=== PATIENT | male | born 2000 | race Caucasian/White ===

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

== ENCOUNTER 2018-03-13 06:37 | Emergency (ER) | payer OTHER | END 2018-03-13 07:46 | disposition left against medical advice (07) | LOC: M ED 06:37 | DX: Z04.1 Encounter for examination and observation following transport accident (principal); Z53.21 Procedure and treatment not carried out due to patient leaving prior to being seen by health care provider ==

== ENCOUNTER 2018-03-21 17:18 | Emergency (ER) | payer OTHER ==
[2018-03-21 17:33] LABS: HEMATOCRIT 51.8 % (42.0-52.0); HEMOGLOBIN 18.2 g/dl (13.5-17.5); MEAN CORPUSCULAR HEMOGLOBIN 31.8 pg (27.0-33.0); MEAN CORPUSCULAR HGB CONC 35.1 g/dl (32.0-36.5); MEAN CORPUSCULAR VOLUME 90.6 fl (80.0-96.0); PLATELET COUNT, AUTOMATED 230 10^3/uL (150-450); RED BLOOD COUNT 5.72 10^6/uL (4.30-6.10); WHITE BLOOD COUNT 11.9 10^3/uL (4.0-10.0)
[2018-03-21] MEDS: NS 1,000 ML IV (17:52)
[2018-03-21 18:07] LABS: ACETAMINOPHEN LEVEL < 2.0 UG/ML (10.0-30.0); ALBUMIN 4.1 GM/DL (3.2-5.2); ALKALINE PHOSPHATASE 138 U/L (45-117); ALT/SGPT 128 U/L (12-78); ANION GAP 10 MEQ/L (8-16); AST/SGOT 128 U/L (7-37); BILIRUBIN,DIRECT 0.1 MG/DL (0.0-0.2); BILIRUBIN,TOTAL 0.3 MG/DL (0.2-1.0); BLOOD UREA NITROGEN 5 MG/DL (7-18); CALCIUM LEVEL 8.6 MG/DL (8.5-10.1); CARBON DIOXIDE LEVEL 26 MEQ/L (21-32); CHLORIDE LEVEL 106 MEQ/L (98-107); CREATININE FOR GFR 0.89 MG/DL (0.70-1.30); ETHYL ALCOHOL (ETHANOL) 0.395 % (0.000-0.010); GLUCOSE, FASTING 93 MG/DL (70-100); POTASSIUM SERUM 4.4 MEQ/L (3.5-5.1); SALICYLATE LEVEL 2.4 MG/DL (5.0-30.0); SODIUM LEVEL 142 MEQ/L (136-145); TOTAL PROTEIN 8.2 GM/DL (6.4-8.2)
[2018-03-21 18:17] LABS: AMPHETAMINES LEVEL URINE NEGATIVE (NEGATIVE); BARBITURATES URINE NEGATIVE (NEGATIVE); BENZODIAZEPINES URINE NEGATIVE (NEGATIVE); CANNABINOIDS URINE NEGATIVE (NEGATIVE); COCAINE METABOLITE URINE NEGATIVE (NEGATIVE); METHADONE URINE NEGATIVE (NEGATIVE); OPIATES URINE NEGATIVE (NEGATIVE); PHENCYCLIDINE URINE NEGATIVE (NEGATIVE)
== END 2018-03-21 18:48 | disposition home or self-care (01) ==
LOC: M ED 17:18
DX: F10.120 Alcohol abuse with intoxication, uncomplicated (principal); F41.9 Anxiety disorder, unspecified; Z87.09 Personal history of other diseases of the respiratory system; F17.200 Nicotine dependence, unspecified, uncomplicated; Z79.899 Other long term (current) drug therapy
CPT/HCPCS: 71045

== ENCOUNTER 2018-04-13 01:26 | Inpatient (IN) | payer OTHER ==
[2018-04-13] MEDS ORDERED: PROPOFOL 1,000 MG/100 ML VIAL As Ordered (01:35)
[2018-04-13] MEDS: ETOMIDATE INJ 20MG/10ML VIAL IV (01:45)
[2018-04-13] MEDS: SUCCINYLCHOLINE INJ 200 MG/10 ML VIAL (J0330) IV (01:45)
[2018-04-13] MEDS ORDERED: ISOVUE-370 76% 100ML VIAL (Q9967) As Ordered (01:48)
[2018-04-13] MEDS: PROPOFOL 1,000 MG in APPROPRIATE DILUENT 1 EA IV ×7 (01:55→17:01)
[2018-04-13 01:58] LABS: HEMATOCRIT 46.7 % (42.0-52.0); HEMOGLOBIN 16.7 g/dl (13.5-17.5); MEAN CORPUSCULAR HEMOGLOBIN 31.6 pg (27.0-33.0); MEAN CORPUSCULAR HGB CONC 35.8 g/dl (32.0-36.5); MEAN CORPUSCULAR VOLUME 88.4 fl (80.0-96.0); PLATELET COUNT, AUTOMATED 216 10^3/uL (150-450); RED BLOOD COUNT 5.28 10^6/uL (4.30-6.10); RED CELL DISTRIBUTION WIDTH 12.1 % (11.5-14.5); WHITE BLOOD COUNT 11.3 10^3/uL (4.0-10.0)
[2018-04-13 02:01] LABS: ADD MANUAL DIFFER YES; DIFF SLIDE NUMBER 91; POSITIVE DIFF POS FLAG
[2018-04-13 02:12] LABS: BASOPHILS 1 % (0-4); EOSINOPHILS 2 % (0-5); LYMPHOCYTES 47 % (16-52); MONOCYTES 1 % (0-8); NEUTROPHILS 49 % (35-75); PLATELET ESTIMATE NORMAL (NORMAL)
[2018-04-13 02:37] LABS: ALBUMIN/GLOBULIN RATIO 1.03 (1.00-1.93); ALKALINE PHOSPHATASE 128 U/L (45-117); ALT/SGPT 162 U/L (12-78); ANION GAP 13 MEQ/L (8-16); AST/SGOT 174 U/L (7-37); BILIRUBIN,DIRECT 0.1 MG/DL (0.0-0.2); BILIRUBIN,TOTAL 0.2 MG/DL (0.2-1.0); BLOOD UREA NITROGEN 6 MG/DL (7-18); CALCIUM LEVEL 8.7 MG/DL (8.5-10.1); CARBON DIOXIDE LEVEL 24 MEQ/L (21-32); CHLORIDE LEVEL 104 MEQ/L (98-107); CREATININE FOR GFR 0.81 MG/DL (0.70-1.30); GLUCOSE, FASTING 111 MG/DL (70-100); LIPASE 110 U/L (73-393); POTASSIUM SERUM 3.5 MEQ/L (3.5-5.1); SODIUM LEVEL 141 MEQ/L (136-145); TOTAL PROTEIN 7.9 GM/DL (6.4-8.2)
[2018-04-13 02:53] LABS: APPEARANCE, URINE CLEAR (CLEAR); BACTERIA, URINE AUTO NEGATIVE (NEGATIVE); BILIRUBIN, URINE AUTO NEGATIVE (NEGATIVE); BLOOD, URINE BLOOD NEGATIVE (NEGATIVE); COLOR, URINE STRAW (YELLOW); GLUCOSE, URINE (UA) AUTO NEGATIVE (NEGATIVE); KETONE, URINE AUTO NEGATIVE (NEGATIVE); LEUKOCYTE ESTERASE, URINE AUTO NEGATIVE (NEGATIVE); NITRITE, URINE AUTO NEGATIVE (NEGATIVE); PROTEIN, URINE AUTO NEGATIVE (NEGATIVE); RBC, URINE AUTO 0 /HPF (0-3); SPECIFIC GRAVITY URINE AUTO 1.008 (1.002-1.035); SQUAMOUS EPITHELIAL CELL UR AU 0 /HPF (0-6); UROBILINOGEN, URINE AUTO 0.2 mg/dL (0.0-2.0); WBC, URINE AUTO 1 /HPF (0-3)
[2018-04-13 02:57] LABS: ETHYL ALCOHOL (ETHANOL) 0.431 % (0.000-0.010)
[2018-04-13 03:21] LABS: AMPHETAMINES LEVEL URINE NEGATIVE (NEGATIVE); BARBITURATES URINE NEGATIVE (NEGATIVE); BENZODIAZEPINES URINE NEGATIVE (NEGATIVE); CANNABINOIDS URINE NEGATIVE (NEGATIVE); COCAINE METABOLITE URINE NEGATIVE (NEGATIVE); METHADONE URINE NEGATIVE (NEGATIVE); OPIATES URINE NEGATIVE (NEGATIVE); PHENCYCLIDINE URINE NEGATIVE (NEGATIVE)
[2018-04-13 03:35] LABS: ABG BASE EXCESS -2.9 (-2.0-2.0); ABG HCO3 19.5 MEQ/L (22.0-26.0); ABG O2 SATURATION 99.2 % (95.0-99.0); ABG PARTIAL PRESSURE CO2 28.8 mmHg (35.0-45.0); ABG PARTIAL PRESSURE O2 203.1 mmHg (75.0-100.0); ABG STANDARD HCO3 22.1 MEQ/L (22.0-26.0); ABG TOTAL CO2 20.4 MEQ/L (22.0-29.0); ABG pH (ARTERIAL) 7.449 UNITS (7.350-7.450)
[2018-04-13] MEDS: PROPOFOL 200 MG/20 ML VIAL IV (03:55)
[2018-04-13] MEDS: IPRATROPIUM 0.5MG/ALBUTEROL 2.5MG INH SOL UD 3ML (DUONEB)(J7620) NEB ×4 (07:14→20:00)
[2018-04-13] MEDS ORDERED: MIDAZOLAM INJ 2 MG/2 ML VIAL (J2250) As Ordered ×3 (07:38)
[2018-04-13] MEDS: MIDAZOLAM INJ 2 MG/2 ML VIAL (J2250) IV ×6 (07:48→16:15)
[2018-04-13] MEDS: ENOXAPARIN 40 MG/0.4 ML SYRINGE (J1650) SC (08:29)
[2018-04-13] MEDS: PANTOPRAZOLE 40MG INJ (PROTONIX) (C9113) IV (08:29)
[2018-04-13] MEDS: MULTIVITAMIN -ADULT INJECTION 10 ML, THIAMINE INJection 100 MG, FOLIC ACID 1 MG in NS 1... IV (10:41)
[2018-04-13] MEDS ORDERED: SUCCINYLCHOLINE 100 MG/5 ML SYRINGE (J0330) (11:26)
[2018-04-13] MEDS: NS 1,000 ML IV (11:40)
[2018-04-13] MEDS: CHLORHEXIDINE ORAL RINSE 0.12%/15ML 120ML BOTTLE MT (12:07)
[2018-04-13] MEDS: MORPHINE 4 MG/ML 1ML VIAL/SYRINGE (J2270) IV (16:16)
== END 2018-04-13 20:02 | disposition left against medical advice (07) | DRG 133 ==
LOC: M ED 01:26 → M ED INP 05:11 → M ICU 06:33
PROC: 0BH17EZ Insertion of Endotracheal Airway into Trachea, Via Natural or Artificial Opening (ICD-10-PCS; principal; 2018-04-13)
PROC: 5A1935Z Respiratory Ventilation, Less than 24 Consecutive Hours (ICD-10-PCS; 2018-04-13)
DX: J96.90 Respiratory failure, unspecified, unspecified whether with hypoxia or hypercapnia (principal); F41.9 Anxiety disorder, unspecified; F10.129 Alcohol abuse with intoxication, unspecified

== ENCOUNTER → 2018-06-01 | Outpatient (CLI) | payer MEDICAID | LOC: M OUTALCOH 07:37 | DX: Z13.89 Encounter for screening for other disorder (principal); F10.20 Alcohol dependence, uncomplicated ==

== ENCOUNTER 2018-06-11 15:25 | Outpatient (RCR) | payer MEDICAID | END 2018-06-30 | LOC: M OUTALCOH 06-15 09:00 | DX: F10.20 Alcohol dependence, uncomplicated (principal); F17.200 Nicotine dependence, unspecified, uncomplicated ==

== ENCOUNTER → 2018-07-01 | Outpatient (CLI) | payer MEDICAID ==
[2018-07-01 19:43] LABS: BASO % 0.4 % (0.0-1.0); EOS # 0.2 10^3/uL (0.0-0.50); EOS % 1.7 % (0.0-3.0); HEMATOCRIT 50.2 % (42.0-52.0); IMMATURE GRANULOCYTE % 0.4 % (0-3.0); LYMPH # 2.5 10^3/uL (1.5-6.5); LYMPH % 23.7 % (24.0-44.0); MEAN CORPUSCULAR HEMOGLOBIN 31.8 pg (27.0-33.0); MEAN CORPUSCULAR HGB CONC 33.9 g/dl (32.0-36.5); MONO # 0.9 10^3/uL (0.0-0.8); MONO % 8.7 % (0.0-5.0); NEUTROPHILS # 6.7 10^3/uL (1.8-7.7); NEUTROPHILS % 65.1 % (36.0-66.0); PLATELET COUNT, AUTOMATED 205 10^3/uL (150-450); RED BLOOD COUNT 5.34 10^6/uL (4.30-6.10); WHITE BLOOD COUNT 10.4 10^3/uL (4.0-10.0)
[2018-07-01 19:56] LABS: ALBUMIN 4.1 GM/DL (3.2-5.2); ALBUMIN/GLOBULIN RATIO 1.14 (1.00-1.93); ALKALINE PHOSPHATASE 102 U/L (45-117); ALT/SGPT 43 U/L (12-78); ANION GAP 5 MEQ/L (8-16); AST/SGOT 37 U/L (7-37); BILIRUBIN,TOTAL 0.5 MG/DL (0.2-1.0); BLOOD UREA NITROGEN 3 MG/DL (7-18); CALCIUM LEVEL 9.4 MG/DL (8.5-10.1); CARBON DIOXIDE LEVEL 31 MEQ/L (21-32); CHLORIDE LEVEL 103 MEQ/L (98-107); CREATININE FOR GFR 0.92 MG/DL (0.70-1.30); GLUCOSE, FASTING 63 MG/DL (70-100); POTASSIUM SERUM 4.3 MEQ/L (3.5-5.1); SODIUM LEVEL 139 MEQ/L (136-145); TOTAL PROTEIN 7.7 GM/DL (6.4-8.2)
== END ==
LOC: M WUC 14:27
DX: F10.220 Alcohol dependence with intoxication, uncomplicated (principal); D52.1 Drug-induced folate deficiency anemia
CPT/HCPCS: 80053

== ENCOUNTER 2018-07-05 15:34 | Outpatient (RCR) | payer MEDICAID | END 2018-07-30 | LOC: M OUTALCOH 15:34 | DX: F10.20 Alcohol dependence, uncomplicated (principal); F17.200 Nicotine dependence, unspecified, uncomplicated ==

== ENCOUNTER 2018-07-10 14:38 | Emergency (ER) | payer OTHER, MEDICAID | END 2018-07-10 14:58 | disposition left against medical advice (07) | LOC: M ED 14:38 | DX: Z53.29 Procedure and treatment not carried out because of patient's decision for other reasons (principal) ==

== ENCOUNTER 2018-08-27 14:00 | Outpatient (RCR) | payer MEDICAID ==
[~2018-08-27 14:00] MED LIST: AMOX875T; DIAZ10TA2; IBUPOTC PO; LORA-243; LORA10TA3 PO; PRED20TA; SERT-138; SERT-138 PO; SERT25TA88
== END 2018-08-30 ==
LOC: M OUTALCOH 14:00
PROVIDERS: ATTEND Psychiatry & Neurology Psychiatry
DX: F10.20 Alcohol dependence, uncomplicated (principal); F17.200 Nicotine dependence, unspecified, uncomplicated

== ENCOUNTER 2018-09-29 15:00 | Outpatient (RCR) | payer MEDICAID | END 2018-09-30 | LOC: M OUTALCOH 15:00 | PROVIDERS: ATTEND Psychiatry & Neurology Psychiatry | DX: F10.20 Alcohol dependence, uncomplicated (principal); F17.200 Nicotine dependence, unspecified, uncomplicated ==

== ENCOUNTER 2018-10-22 14:00 | Outpatient (RCR) | payer MEDICAID | END 2018-10-28 | LOC: M OUTALCOH 14:00 | PROVIDERS: ATTEND Psychiatry & Neurology Psychiatry | DX: F10.20 Alcohol dependence, uncomplicated (principal); F17.200 Nicotine dependence, unspecified, uncomplicated ==

== ENCOUNTER 2018-11-26 14:00 | Outpatient (RCR) | payer MEDICAID ==
[2018-11-30] MEDS ORDERED: HYDR-3363 PO (08:25)
== END 2018-11-28 ==
LOC: M OUTALCOH 14:00
PROVIDERS: ATTEND Psychiatry & Neurology Psychiatry
DX: F10.20 Alcohol dependence, uncomplicated (principal); F17.200 Nicotine dependence, unspecified, uncomplicated

== ENCOUNTER 2018-12-07 08:48 | Day surgery (SDC) | payer OTHER ==
[~2018-12-07] VITALS: Ht 182.9 cm; Wt 83.5 kg
[~2018-12-07 08:48] MED LIST changes: +HYDR-3363 PO; +LR 1,000 ML IV ONE
[2018-12-07] MEDS ORDERED: PROPOFOL 200 MG/20 ML VIAL As Ordered ONE (09:16)
[2018-12-07] MEDS ORDERED: MIDAZOLAM INJ 2 MG/2 ML VIAL (J2250) As Ordered ONE (09:16)
[2018-12-07] MEDS ORDERED: LIDOCAINE 2% INJ 100 MG/5 ML SDV (FOR ANES.) As Ordered ONE (09:16)
[2018-12-07] MEDS ORDERED: fentaNYL 250 MCG/5 ML INJECTION (J3010) As Ordered ONE (09:16)
[2018-12-07] MEDS ORDERED: dexameTHASONE 4 MG/ML 1ML VIAL (J1100) As Ordered ONE (09:16)
[2018-12-07] MEDS ORDERED: ONDANSETRON 4MG/2ML VIAL (J2405) As Ordered ONE (09:16)
[2018-12-07] MEDS ORDERED: BACITRACIN OINT 30GM As Ordered ONE (10:02)
[2018-12-07] MEDS ORDERED: LIDOCAINE W/EPINEPHRINE 1% 20ML VIAL As Ordered ONE (10:03)
[2018-12-07 11:00] VITALS: BP 158/81
--- NOTE | 2018-12-21 14:05 | RO ---
DATE OF PROCEDURE: 12/07/2018 PREOPERATIVE DIAGNOSIS: Sebaceous cyst of the right face. POSTOPERATIVE DIAGNOSIS: Sebaceous cyst of the right face. PROCEDURE: Excision of sebaceous cyst of the right face. SURGEON: Dr. Calvin Rogers APPLICATION SUPPORT CONSULTANT: ANESTHESIA: INDICATIONS: This is a 18-year-old with a history of a soft tissue swelling of the right face just anterior to the zygomatic arch just beneath it. DESCRIPTION OF PROCEDURE: Satisfactory position was created and the patient chose not to have any type of intravenous sedation. The skin was prepped and draped in the usual sterile fashion. 0.5% lidocaine with 1:100,000 epinephrine was used to inject a region around the cyst. An elliptical incision was made on top of the cyst to include a small palatal of skin. Superficially the cyst capsule was identified and using a combination of blunt and sharp dissection the cyst was carefully dissected from the underlying soft tissue, being careful not to go beneath the fascia overlying the facial muscles on that side. The incision was made in a vertical curvilinear position so that it would be incorporated to laugh lines. Once the cyst was removed intact, the skin edges were almost coapted without any sutures. A #5-0 plain suture was placed interrupted fashion to approximate the edges and Steri-Strips were applied. He tolerated this procedure well, was sent to recovery in satisfactory condition. He will be followed up in 1 week.
== END 2018-12-07 11:20 | disposition home or self-care (01) ==
LOC: M SDC 08:48
PROVIDERS: ATTEND Specialist
DX: L72.0 Epidermal cyst (principal); F41.9 Anxiety disorder, unspecified; Z72.0 Tobacco use

== ENCOUNTER → 2018-12-24 | Outpatient (CLI) | payer OTHER ==
[~2018-12-24] MED LIST changes: -LR 1,000 ML IV ONE
== END ==
LOC: M LAB 17:14
PROVIDERS: ATTEND Psychiatry & Neurology Psychiatry
DX: F10.20 Alcohol dependence, uncomplicated (principal)

== ENCOUNTER 2018-12-27 14:00 | Outpatient (RCR) | payer MEDICAID | END 2018-12-28 | LOC: M OUTALCOH 14:00 | PROVIDERS: ATTEND Psychiatry & Neurology Psychiatry | DX: F10.20 Alcohol dependence, uncomplicated (principal); F17.200 Nicotine dependence, unspecified, uncomplicated ==

== ENCOUNTER 2019-01-21 15:59 | Outpatient (RCR) | payer MEDICAID | END 2019-01-28 | LOC: M OUTALCOH 15:59 | PROVIDERS: ATTEND Psychiatry & Neurology Psychiatry | DX: F10.20 Alcohol dependence, uncomplicated (principal); F17.200 Nicotine dependence, unspecified, uncomplicated ==

== ENCOUNTER 2019-02-23 16:00 | Outpatient (RCR) | payer MEDICAID | END 2019-02-27 | LOC: M OUTALCOH 16:00 | PROVIDERS: ATTEND Psychiatry & Neurology Psychiatry | DX: F10.20 Alcohol dependence, uncomplicated (principal); F17.200 Nicotine dependence, unspecified, uncomplicated ==

== ENCOUNTER 2019-03-28 16:00 | Outpatient (RCR) | payer MEDICAID | END 2019-03-30 | LOC: M OUTALCOH 16:00 | PROVIDERS: ATTEND Psychiatry & Neurology Psychiatry | DX: F10.20 Alcohol dependence, uncomplicated (principal); F17.200 Nicotine dependence, unspecified, uncomplicated ==

== ENCOUNTER 2019-04-29 15:57 | Outpatient (RCR) | payer MEDICAID | END 2019-04-30 | LOC: M OUTALCOH 15:57 | PROVIDERS: ATTEND Psychiatry & Neurology Psychiatry | DX: F10.20 Alcohol dependence, uncomplicated (principal); F17.200 Nicotine dependence, unspecified, uncomplicated ==

== ENCOUNTER → 2019-05-30 | Outpatient (RCR) | payer MEDICAID | LOC: M OUTALCOH 05-09 10:27 | PROVIDERS: ATTEND Psychiatry & Neurology Psychiatry | DX: F10.20 Alcohol dependence, uncomplicated (principal); F17.200 Nicotine dependence, unspecified, uncomplicated ==

== ENCOUNTER 2019-06-29 08:00 | Outpatient (RCR) | payer MEDICAID ==
[~2019-06-29 08:00] MED LIST changes: +SERT25TA21; -SERT25TA88
== END 2019-06-30 ==
LOC: M OUTALCOH 08:00
PROVIDERS: ATTEND Psychiatry & Neurology Psychiatry
DX: F10.20 Alcohol dependence, uncomplicated (principal); F17.200 Nicotine dependence, unspecified, uncomplicated

== ENCOUNTER 2019-07-11 09:02 | Outpatient (RCR) | payer MEDICAID | END 2019-07-30 | LOC: M OUTALCOH 09:02 | PROVIDERS: ATTEND Psychiatry & Neurology Psychiatry | DX: F10.20 Alcohol dependence, uncomplicated (principal); F17.200 Nicotine dependence, unspecified, uncomplicated ==

== ENCOUNTER 2019-08-15 08:01 | Outpatient (RCR) | payer MEDICAID | END 2019-08-30 | LOC: M OUTALCOH 08:01 | PROVIDERS: ATTEND Psychiatry & Neurology Psychiatry | DX: F10.20 Alcohol dependence, uncomplicated (principal); F17.200 Nicotine dependence, unspecified, uncomplicated ==

== ENCOUNTER → 2019-08-22 | Outpatient (CLI) | payer OTHER | LOC: M LAB 14:10 | PROVIDERS: ATTEND Psychiatry & Neurology Psychiatry | DX: F12.10 Cannabis abuse, uncomplicated (principal) ==

== ENCOUNTER 2019-09-19 10:07 | Outpatient (RCR) | payer MEDICAID | END 2019-09-30 | LOC: M OUTALCOH 10:07 | PROVIDERS: ATTEND Psychiatry & Neurology Psychiatry | DX: F10.20 Alcohol dependence, uncomplicated (principal); F17.200 Nicotine dependence, unspecified, uncomplicated ==

== ENCOUNTER 2019-10-24 15:49 | Outpatient (RCR) | payer OTHER | END 2019-10-29 | LOC: M OUTALCOH 15:49 | PROVIDERS: ATTEND Psychiatry & Neurology Addiction Medicine | DX: F10.20 Alcohol dependence, uncomplicated (principal); F17.200 Nicotine dependence, unspecified, uncomplicated ==

== ENCOUNTER 2019-11-28 08:08 | Outpatient (RCR) | payer MEDICAID | END 2019-11-29 | LOC: M OUTALCOH 08:08 | PROVIDERS: ATTEND Psychiatry & Neurology Addiction Medicine | DX: F10.20 Alcohol dependence, uncomplicated (principal); F17.200 Nicotine dependence, unspecified, uncomplicated ==

== ENCOUNTER → 2019-12-21 | Outpatient (REF) | payer MEDICAID ==
[2019-12-21 21:13] LABS: CHLAMYDIA DNA AMPLIFICATION NEGATIVE (NEGATIVE); GC DNA AMPLIFICATION NEGATIVE (NEGATIVE)
== END ==
LOC: M LAB REF 19:31
PROVIDERS: ATTEND Physician Assistant
DX: Z11.3 Encounter for screening for infections with a predominantly sexual mode of transmission (principal)

== ENCOUNTER 2020-01-02 09:10 | Outpatient (RCR) | payer MEDICAID | END 2020-01-29 | LOC: M OUTALCOH 09:10 | PROVIDERS: ATTEND Psychiatry & Neurology Addiction Medicine | DX: F10.20 Alcohol dependence, uncomplicated (principal); F17.200 Nicotine dependence, unspecified, uncomplicated ==

== ENCOUNTER → 2020-01-11 | Outpatient (CLI) | payer MEDICAID | LOC: M PLALAB 15:55 | PROVIDERS: ATTEND Psychiatry & Neurology Addiction Medicine | DX: F10.20 Alcohol dependence, uncomplicated (principal) ==

== ENCOUNTER → 2020-02-02 | Outpatient (CLI) | payer MEDICAID | LOC: M PLALAB 15:10 | PROVIDERS: ATTEND Psychiatry & Neurology Addiction Medicine | DX: F10.920 Alcohol use, unspecified with intoxication, uncomplicated (principal) ==

== ENCOUNTER 2020-02-07 08:00 | Outpatient (RCR) | payer MEDICAID | END 2020-02-28 | LOC: M OUTALCOH 08:00 | PROVIDERS: ATTEND Psychiatry & Neurology Addiction Medicine | DX: F10.20 Alcohol dependence, uncomplicated (principal); F17.200 Nicotine dependence, unspecified, uncomplicated ==

== ENCOUNTER 2020-03-12 08:38 | Outpatient (RCR) | payer MEDICAID | END 2020-03-30 | LOC: M OUTALCOH 08:38 | PROVIDERS: ATTEND Psychiatry & Neurology Addiction Medicine | DX: F10.20 Alcohol dependence, uncomplicated (principal); F17.200 Nicotine dependence, unspecified, uncomplicated ==

== ENCOUNTER → 2020-04-12 | Outpatient (CLI) | payer MEDICAID | LOC: M OUTALCOH 09:00 | PROVIDERS: ATTEND Psychiatry & Neurology Addiction Medicine | DX: Z03.89 Encounter for observation for other suspected diseases and conditions ruled out (principal) ==

== ENCOUNTER 2020-04-18 10:00 | Outpatient (RCR) | payer MEDICAID | END 2020-04-30 | LOC: M OUTALCOH 10:00 | PROVIDERS: ATTEND Psychiatry & Neurology Addiction Medicine | DX: F10.20 Alcohol dependence, uncomplicated (principal); F17.200 Nicotine dependence, unspecified, uncomplicated ==

== ENCOUNTER 2021-04-17 13:23 | Emergency (ER) | payer MEDICAID ==
[~2021-04-17] VITALS: Ht 182.9 cm; Wt 83.2 kg
[2021-04-17 13:23] VITALS: BP 144/89
[2021-04-17] MEDS ORDERED: PROP20TA72 (13:36)
[2021-04-17] MEDS ORDERED: DIAZ10TA2 (13:36)
[2021-04-17] MEDS ORDERED: BUSP10TA (13:36)
== END 2021-04-17 14:05 | disposition left against medical advice (07) ==
LOC: M ED 13:23
DX: Z53.21 Procedure and treatment not carried out due to patient leaving prior to being seen by health care provider (principal)

== ENCOUNTER 2021-08-03 08:21 | Emergency (ER) | payer MEDICAID ==
[~2021-08-03] VITALS: Ht 182.9 cm; Wt 71.9 kg
[~2021-08-03 08:21] MED LIST changes: +BUSP10TA PO; +PROP20TA72 PO
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
[2021-08-03] MEDS ORDERED: MIRTAZAPINE PO (08:39)
[2021-08-03] MEDS ORDERED: ZOLO100T PO (08:39)
[2021-08-03] MEDS ORDERED: ONDANSETRON 4 MG ORAL DISINTEGRATING TAB PO ONE (09:00)
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
[2021-08-03 09:40] LABS: HEMATOCRIT 49.3 % (42.0-52.0); HEMOGLOBIN 17.4 g/dl (13.5-17.5); MEAN CORPUSCULAR HGB CONC 35.3 g/dl (32.0-36.5); PLATELET COUNT, AUTOMATED 283 10^3/uL (150-450)
[2021-08-03] MEDS ORDERED: PROMETHAZINE INJ 25 MG/ML VIAL (J2550) IM ONE (10:15)
[2021-08-03 10:18] LABS: ACETAMINOPHEN LEVEL < 2.0 UG/ML (10.0-30.0); ALT/SGPT 149 U/L (12-78); BILIRUBIN,DIRECT 0.3 MG/DL (0.0-0.2); BILIRUBIN,TOTAL 0.8 MG/DL (0.2-1.0); BLOOD UREA NITROGEN 9 MG/DL (7-18); CALCIUM LEVEL 10.3 MG/DL (8.5-10.1); CARBON DIOXIDE LEVEL 32 MEQ/L (21-32); CHLORIDE LEVEL 96 MEQ/L (98-107); ETHYL ALCOHOL (ETHANOL) 0.004 % (0.000-0.010); GLOMERULAR FILTRATION RATE > 60.0 (>60); GLUCOSE, FASTING 114 MG/DL (70-100); POTASSIUM SERUM 3.6 MEQ/L (3.5-5.1); SALICYLATE LEVEL < 1.7 MG/DL (5.0-30.0); SODIUM LEVEL 138 MEQ/L (136-145); TOTAL PROTEIN 7.9 GM/DL (6.4-8.2)
[2021-08-03 10:28] LABS: AMPHETAMINES LEVEL URINE NEGATIVE (NEGATIVE); BARBITURATES URINE NEGATIVE (NEGATIVE); BENZODIAZEPINES URINE POSITIVE (NEGATIVE); CANNABINOIDS URINE POSITIVE (NEGATIVE); COCAINE METABOLITE URINE NEGATIVE (NEGATIVE); METHADONE URINE NEGATIVE (NEGATIVE); OPIATES URINE NEGATIVE (NEGATIVE); PHENCYCLIDINE URINE NEGATIVE (NEGATIVE)
--- NOTE | 2021-08-03 10:44 | REP ---
INDICATION: vomtiing COMPARISON: Comparison CT study April 13, 2018. TECHNIQUE: Helical scanning is acquired and 3 mm axial images were reformatted. Coronal and sagittal MPR images were generated and reviewed. FINDINGS: Preliminary digital highway engineering teacher radiograph is unremarkable. The lung bases are clear on axial CT images. There is moderate diffuse fatty infiltration of the liver again noted. The liver is not is homogeneous in texture felt to be enlarged. The spleen and at the upper range of normal in size measuring 12.2 cm. There is an accessory splenule. No adrenal lesion is seen on either side. No abnormality is noted in the pancreas. There are multiple gallstones within the gallbladder again noted. No pericholecystic fluid or No retroperitoneal mass or adenopathy is seen. Gallbladder wall thickening is appreciated. A normal appendix is seen coursing into the pelvis on the right side. Small and large intestinal bowel loops are unremarkable in the abdomen and pelvis. No abdominal wall defect is seen. Seminal vesicles, prostate, and urinary bladder are normal in appearance. No bony destructive lesion is seen. IMPRESSION: 1. Moderate diffuse fatty infiltration of the liver. Borderline size spleen. 2. Cholelithiasis. 3. Otherwise negative CT study abdomen and pelvis. <Electronically signed by Nirav Sosa > 08/03/21 [id number]
--- NOTE | 2021-08-03 11:18 | REP ---
INDICATION: RUQ pain/abnormal LFTs. COMPARISON: Comparison is made with CT study of the abdomen and pelvis done earlier this date. TECHNIQUE: Right upper quadrant sonography. FINDINGS: Scanning through the right upper quadrant of the abdomen demonstrates a normal sized, thin-walled gallbladder containing multiple shadowing calculi.. Common bile duct is normal measuring 0.3 cm in greatest diameter. No focal liver lesion is seen. Liver size is normal. There is increased echogenicity in the liver diffusely consistent with fatty infiltration. No pancreatic abnormality is observed. No right renal abnormality is seen. There is no evidence of ascites. The right kidney measures 11.0 x 5.7 x 5.9 cm. IMPRESSION: Evidence of fatty infiltration of the liver. Cholelithiasis. Otherwise negative. <Electronically signed by Nirav Sosa > 08/03/21 [id number]
[2021-08-03 12:43] LABS: MEAN CORPUSCULAR HEMOGLOBIN 30.2 pg (27.0-33.0); MEAN CORPUSCULAR HGB CONC 35.3 g/dl (32.0-36.5); MEAN CORPUSCULAR VOLUME 85.4 fl (80.0-96.0); PLATELET COUNT, AUTOMATED 328 10^3/uL (150-450); RED BLOOD COUNT 5.97 10^6/uL (4.30-6.10); WHITE BLOOD COUNT 29.5 10^3/uL (4.0-10.0)
[2021-08-03] MEDS ORDERED: ISOVUE-370 76% 100ML VIAL As Ordered ONE (13:50)
--- NOTE | 2021-08-03 14:43 | REP ---
INDICATION: ?dental abscess. COMPARISON: Comparison study March 11, 2016. TECHNIQUE: Helical scanning is acquired following the intravenous injection of 75 mL of Isovue 370. 3 mm axial images re-formatted. Coronal and sagittal MPR images are generated. FINDINGS: Digital preliminary top former radiograph is unremarkable. There are multiple carious maxillary and mandibular teeth. No mandibular or maxillary bony destructive lesion is seen. No perimandibular or other facial abscess cavity is appreciated. There is soft tissue swelling anteriorly at the level of the anterior arch of the mandible. There are normal-sized submandibular and submental lymph nodes. Submandibular and parotid glands are normal and symmetric. The maxillary sinuses are clear. Ethmoid and sphenoid air cells are clear. Frontal sinuses are clear. Mastoid aeration is normal and symmetric. The tongue base and floor of mouth structures are unremarkable. Visualized intracranial and intraorbital structures are unremarkable. IMPRESSION: Multiple carious maxillary and mandibular teeth. No acute bony destructive soft tissue abscess seen. Lesion or <Electronically signed by Nirav Sosa > 08/03/21 [id number]
[2021-08-03 14:54] LABS: RSV AMPLIFICATION NEGATIVE (NEGATIVE)
[2021-08-03 15:30] VITALS: BP 131/64
== END 2021-08-03 15:31 | disposition home or self-care (01) ==
LOC: M ED 08:21
DX: F41.9 Anxiety disorder, unspecified (principal); R11.2 Nausea with vomiting, unspecified; D72.829 Elevated white blood cell count, unspecified; K76.0 Fatty (change of) liver, not elsewhere classified; K80.20 Calculus of gallbladder without cholecystitis without obstruction; F17.200 Nicotine dependence, unspecified, uncomplicated; F12.10 Cannabis abuse, uncomplicated; Z79.899 Other long term (current) drug therapy
CPT/HCPCS: 36415; 70487; 74176; 76705; 80048; 80076; 80143; 80307; 81001; 82077; 83605; 84443; 85027; 87040; 87631; 96372; 99284; Q0162; Q9967

== ENCOUNTER 2021-08-19 15:27 | Inpatient (IN) | payer MEDICAID ==
[~2021-08-19] VITALS: Ht 182.9 cm; Wt 66.7 kg
[~2021-08-19 15:27] MED LIST changes: +MIRTAZAPINE PO; +ZOLO100T PO
[2021-08-19 16:46] LABS: HEMATOCRIT 48.3 % (42.0-52.0); HEMOGLOBIN 16.5 g/dl (13.5-17.5); MEAN CORPUSCULAR HEMOGLOBIN 29.7 pg (27.0-33.0); MEAN CORPUSCULAR HGB CONC 34.2 g/dl (32.0-36.5); MEAN CORPUSCULAR VOLUME 86.9 fl (80.0-96.0); PLATELET COUNT, AUTOMATED 370 10^3/uL (150-450); RED BLOOD COUNT 5.56 10^6/uL (4.30-6.10); WHITE BLOOD COUNT 14.2 10^3/uL (4.0-10.0)
[2021-08-19] MEDS ORDERED: LORazepam 1 MG TAB PO STA (16:51)
[2021-08-19 17:20] LABS: RSV AMPLIFICATION NEGATIVE (NEGATIVE)
[2021-08-19 17:23] LABS: ACETAMINOPHEN LEVEL < 2.0 UG/ML (10.0-30.0); ALBUMIN 4.2 GM/DL (3.2-5.2); ALT/SGPT 101 U/L (12-78); BILIRUBIN,DIRECT 0.2 MG/DL (0.0-0.2); BILIRUBIN,TOTAL 0.7 MG/DL (0.2-1.0); BLOOD UREA NITROGEN 8 MG/DL (7-18); CALCIUM LEVEL 9.9 MG/DL (8.5-10.1); CARBON DIOXIDE LEVEL 35 MEQ/L (21-32); CHLORIDE LEVEL 94 MEQ/L (98-107); CREATININE FOR GFR 0.71 MG/DL (0.70-1.30); ETHYL ALCOHOL (ETHANOL) < 0.003 % (0.000-0.010); GLOMERULAR FILTRATION RATE > 60.0 (>60); GLUCOSE, FASTING 98 MG/DL (70-100); POTASSIUM SERUM 3.2 MEQ/L (3.5-5.1); SALICYLATE LEVEL < 1.7 MG/DL (5.0-30.0); SODIUM LEVEL 138 MEQ/L (136-145); TOTAL PROTEIN 7.6 GM/DL (6.4-8.2)
[2021-08-19] MEDS ORDERED: POTASSIUM CHLORIDE 10MEQ SR TABLET PO ONE (17:45)
[2021-08-19 17:52] LABS: AMPHETAMINES LEVEL URINE NEGATIVE (NEGATIVE); BARBITURATES URINE NEGATIVE (NEGATIVE); BENZODIAZEPINES URINE POSITIVE (NEGATIVE); CANNABINOIDS URINE POSITIVE (NEGATIVE); COCAINE METABOLITE URINE NEGATIVE (NEGATIVE); METHADONE URINE NEGATIVE (NEGATIVE); OPIATES URINE NEGATIVE (NEGATIVE); PHENCYCLIDINE URINE NEGATIVE (NEGATIVE)
[2021-08-19] MEDS ORDERED: NICOTINE 21MG/24HR 1 EA TRANSDERMAL TD ONE (21:40)
[2021-08-19] MEDS ORDERED: ZOLO100T PO (22:18)
[2021-08-19] MEDS ORDERED: MIRT-62 PO (22:18)
[2021-08-19] MEDS ORDERED: BUSP-29 PO (22:18)
[2021-08-19] MEDS ORDERED: PROP20TA72 PO (22:18)
[2021-08-19] MEDS ORDERED: HOME MED LIST COMPLETE! XX SCH (22:20)
[2021-08-19] MEDS ORDERED: ACETAMINOPHEN TAB 650MG DOSE (2X325MG) PO PRN (22:20)
[2021-08-19] MEDS ORDERED: MAALOX 30 ML SUSP *UDC PO PRN (22:20)
[2021-08-19] MEDS ORDERED: MOM 30ML SUSPENSION UDC PO PRN (22:20)
[2021-08-20] VITALS (9 sets, daily range): BP systolic 124–175; BP diastolic 72–100
[2021-08-20] MEDS: OLANZapine ORAL DISINTEGRATING TAB 5MG PO PRN ×3 (01:59→19:54)
[2021-08-20] MEDS: traZODone 50 MG TAB PO PRN (01:59)
[2021-08-20] MEDS ORDERED: INFLUENZA QUADRIVALENT PF VACCINE 0.5ML SYRINGE IM ONE (09:00)
[2021-08-20 09:11] LABS: ALT/SGPT 97 U/L (12-78); BILIRUBIN,TOTAL 0.9 MG/DL (0.2-1.0); BLOOD UREA NITROGEN 7 MG/DL (7-18); CALCIUM LEVEL 9.9 MG/DL (8.5-10.1); CARBON DIOXIDE LEVEL 34 MEQ/L (21-32); CHLORIDE LEVEL 96 MEQ/L (98-107); CREATININE FOR GFR 0.71 MG/DL (0.70-1.30); GLOMERULAR FILTRATION RATE > 60.0 (>60); GLUCOSE, FASTING 91 MG/DL (70-100); POTASSIUM SERUM 2.8 MEQ/L (3.5-5.1); SODIUM LEVEL 139 MEQ/L (136-145); TOTAL PROTEIN 7.7 GM/DL (6.4-8.2)
[2021-08-20] MEDS ORDERED: POTASSIUM CHLORIDE 10MEQ SR TABLET PO ONE ×2 (09:30→10:30)
[2021-08-20 09:45] LABS: MAGNESIUM LEVEL 2.2 MG/DL (1.8-2.4)
[2021-08-20] MEDS: NICOTINE 21MG/24HR 1 EA TRANSDERMAL TD PRN (13:05)
[2021-08-20] MEDS ORDERED: DIVALPROEX 250MG *ER* TAB PO SCH (13:55)
[2021-08-20] MEDS ORDERED: LORazepam 2 MG TAB PO PRN ×3 (14:05)
[2021-08-20] MEDS: THIAMINE 100 MG TAB PO SCH ×2 (14:55→19:55)
[2021-08-20] MEDS: MULTIVITAMINS/MINERALS THERAP 1 TAB PO SCH (14:55)
[2021-08-20] MEDS: FOLIC ACID 1 MG TAB PO SCH (14:55)
[2021-08-20] MEDS ORDERED: cloNIDine 0.1MG TABLET PO ONE (20:15)
[2021-08-20] MEDS ORDERED: LORazepam 1 MG TAB PO ONE (20:15)
[2021-08-20] MEDS ORDERED: THIAMINE 100 MG TAB PO SCH ×2 (21:00)
[2021-08-20] MEDS ORDERED: PROPRANOLOL 10 MG TAB PO ONE (21:10)
[2021-08-21 06:12] VITALS: BP 105/50
[2021-08-21 07:58] LABS: INR 0.97; PROTHROMBIN TIME 13.3 SECONDS (12.7-14.5)
[2021-08-21 07:59] LABS: PARTIAL THROMBOPLASTIN TIME 31.2 SECONDS (25.9-37.0)
[2021-08-21 08:51] LABS: ACETAMINOPHEN LEVEL < 2.0 UG/ML (10.0-30.0); FERRITIN 467 NG/ML (26-388); T UPTAKE 36 % (33-40); THYROXINE (T4) 11.2 UG/DL (4.5-12.0)
[2021-08-21] MEDS ORDERED: MULTIVITAMINS/MINERALS THERAP 1 TAB PO SCH ×2 (09:00)
[2021-08-21] MEDS ORDERED: FOLIC ACID 1 MG TAB PO SCH ×2 (09:00)
[2021-08-21] MEDS: FOLIC ACID 1 MG TAB PO SCH (09:07)
[2021-08-21] MEDS: THIAMINE 100 MG TAB PO SCH ×2 (09:07→20:50)
[2021-08-21] MEDS: MULTIVITAMINS/MINERALS THERAP 1 TAB PO SCH (09:07)
[2021-08-21 09:12] LABS: MONO REFLEX EBV VCA IgM NEGATIVE (NEGATIVE)
[2021-08-21 09:31] LABS: HEPATITIS B SURFACE ANTIGEN NEGATIVE (NEGATIVE)
[2021-08-21 09:59] LABS: HEPATITIS C VIRUS ABY INDEX 0.1 INDEX (<0.8)
[2021-08-21 10:00] LABS: HEPATITIS B CORE ANTIBODY IGM NEGATIVE (NEGATIVE)
[2021-08-21 11:27] LABS: ALBUMIN 4.2 GM/DL (3.2-5.2); ALT/SGPT 109 U/L (12-78); BILIRUBIN,DIRECT 0.3 MG/DL (0.0-0.2); BILIRUBIN,TOTAL 0.9 MG/DL (0.2-1.0); TOTAL PROTEIN 7.4 GM/DL (6.4-8.2)
[2021-08-21] MEDS: OLANZapine ORAL DISINTEGRATING TAB 5MG PO PRN (11:32)
[2021-08-21] MEDS: NICOTINE 21MG/24HR 1 EA TRANSDERMAL TD PRN (11:50)
[2021-08-21 14:00] VITALS: BP 118/78
[2021-08-21 16:16] VITALS: BP 104/65
[2021-08-21] MEDS ORDERED: ARIPiprazole 10 MG TAB PO SCH (21:00)
[2021-08-21 22:41] VITALS: BP 141/91
[2021-08-21] MEDS: traZODone 50 MG TAB PO PRN (22:46)
[2021-08-22 07:09] VITALS: BP 135/67
[2021-08-22] MEDS: MULTIVITAMINS/MINERALS THERAP 1 TAB PO SCH (09:34)
[2021-08-22] MEDS: FOLIC ACID 1 MG TAB PO SCH (09:34)
[2021-08-22] MEDS: NICOTINE 21MG/24HR 1 EA TRANSDERMAL TD PRN (11:47)
[2021-08-22] MEDS: OLANZapine ORAL DISINTEGRATING TAB 5MG PO PRN (12:02)
[2021-08-22] MEDS ORDERED: LORazepam 2 MG TAB PO ONE (16:15)
[2021-08-22] MEDS: LITHIUM CARBONATE 300 MG CAP PO SCH ×2 (16:23→20:12)
[2021-08-22 17:43] VITALS: BP 144/85
[2021-08-22] MEDS: chlorproMAZINE 25 MG TABLET PO PRN (18:39)
[2021-08-22] MEDS: PALIPERIDONE 3 MG ER TAB (INVEGA) PO SCH (20:13)
[2021-08-23] MEDS: traZODone 50 MG TAB PO PRN ×2 (00:41→21:34)
[2021-08-23] MEDS: chlorproMAZINE 25 MG TABLET PO PRN ×2 (00:41→21:34)
[2021-08-23 08:27] VITALS: BP 92/59
[2021-08-23] MEDS: FOLIC ACID 1 MG TAB PO SCH (09:32)
[2021-08-23] MEDS: LITHIUM CARBONATE 300 MG CAP PO SCH ×3 (09:32→21:34)
[2021-08-23] MEDS: MULTIVITAMINS/MINERALS THERAP 1 TAB PO SCH (09:33)
[2021-08-23 10:23] LABS: BLOOD UREA NITROGEN 5 MG/DL (7-18); CALCIUM LEVEL 9.7 MG/DL (8.5-10.1); CARBON DIOXIDE LEVEL 30 MEQ/L (21-32); CHLORIDE LEVEL 103 MEQ/L (98-107); CREATININE FOR GFR 0.86 MG/DL (0.70-1.30); GLOMERULAR FILTRATION RATE > 60.0 (>60); GLUCOSE, FASTING 128 MG/DL (70-100); POTASSIUM SERUM 3.6 MEQ/L (3.5-5.1); SODIUM LEVEL 141 MEQ/L (136-145)
[2021-08-23] MEDS ORDERED: IBUPROFEN 600MG TAB PO ONE (11:00)
[2021-08-23 17:24] VITALS: BP 118/60
[2021-08-23] MEDS: PALIPERIDONE 3 MG ER TAB (INVEGA) PO SCH (21:34)
[2021-08-24] MEDS ORDERED: diazePAM 5MG TABLET PO PRN (06:35)
[2021-08-24 06:59] VITALS: BP 169/59
[2021-08-24] MEDS: MULTIVITAMINS/MINERALS THERAP 1 TAB PO SCH (08:22)
[2021-08-24] MEDS: LITHIUM CARBONATE 300 MG CAP PO SCH ×3 (08:22→21:07)
[2021-08-24] MEDS: FOLIC ACID 1 MG TAB PO SCH (08:22)
[2021-08-24] MEDS: NICOTINE 21MG/24HR 1 EA TRANSDERMAL TD PRN (08:26)
[2021-08-24 11:54] VITALS: BP 130/67
[2021-08-24] MEDS: BENZTROPINE 1 MG TAB PO PRN (12:09)
[2021-08-24 15:35] VITALS: BP 142/78
[2021-08-24] MEDS: diazePAM 10 MG TAB PO SCH ×2 (16:10→21:07)
[2021-08-24 21:05] VITALS: BP 130/76
[2021-08-24] MEDS: PALIPERIDONE 3 MG ER TAB (INVEGA) PO SCH (21:06)
[2021-08-24] MEDS: traZODone 50 MG TAB PO PRN (21:07)
[2021-08-25] MEDS: chlorproMAZINE 25 MG TABLET PO PRN ×2 (02:49→17:12)
[2021-08-25 06:20] VITALS: BP 105/67
[2021-08-25] MEDS: diazePAM 10 MG TAB PO SCH ×2 (09:42→16:10)
[2021-08-25] MEDS: FOLIC ACID 1 MG TAB PO SCH (09:42)
[2021-08-25] MEDS: LITHIUM CARBONATE 300 MG CAP PO SCH ×3 (09:42→20:24)
[2021-08-25] MEDS: MULTIVITAMINS/MINERALS THERAP 1 TAB PO SCH (09:42)
[2021-08-25 15:37] VITALS: BP 109/71
[2021-08-25] MEDS ORDERED: QUEtiapine FUMARATE 25 MG TAB PO ONE (18:00)
[2021-08-25] MEDS: PALIPERIDONE 3 MG ER TAB (INVEGA) PO SCH (20:24)
[2021-08-25] MEDS: QUEtiapine FUMARATE 50MG TAB PO SCH (20:24)
[2021-08-25] MEDS ORDERED: diazePAM 10 MG TAB PO SCH (21:00)
[2021-08-25] MEDS ORDERED: diazePAM 10 MG TAB PO ONE (21:00)
[2021-08-25 21:17] VITALS: BP 115/69
[2021-08-26 06:37] VITALS: BP 114/55
[2021-08-26 07:21] LABS: ALBUMIN 3.8 GM/DL (3.2-5.2); ALT/SGPT 78 U/L (12-78); BILIRUBIN,TOTAL 0.8 MG/DL (0.2-1.0); BLOOD UREA NITROGEN 4 MG/DL (7-18); CALCIUM LEVEL 9.4 MG/DL (8.5-10.1); CARBON DIOXIDE LEVEL 30 MEQ/L (21-32); CHLORIDE LEVEL 106 MEQ/L (98-107); CREATININE FOR GFR 0.68 MG/DL (0.70-1.30); GLOMERULAR FILTRATION RATE > 60.0 (>60); GLUCOSE, FASTING 101 MG/DL (70-100); POTASSIUM SERUM 3.6 MEQ/L (3.5-5.1); SODIUM LEVEL 142 MEQ/L (136-145); TOTAL PROTEIN 6.5 GM/DL (6.4-8.2)
[2021-08-26] MEDS ORDERED: diazePAM 5MG TABLET PO SCH (09:00)
[2021-08-26] MEDS ORDERED: diazePAM 5MG TABLET PO PRN (09:00)
[2021-08-26] MEDS: FOLIC ACID 1 MG TAB PO SCH (09:10)
[2021-08-26] MEDS: MULTIVITAMINS/MINERALS THERAP 1 TAB PO SCH (09:10)
[2021-08-26] MEDS: LITHIUM CARBONATE 300 MG CAP PO SCH ×3 (09:11→21:42)
[2021-08-26] MEDS: BENZTROPINE 1 MG TAB PO PRN (12:31)
[2021-08-26] MEDS: chlorproMAZINE 25 MG TABLET PO PRN ×2 (12:31→22:24)
[2021-08-26] MEDS: NICOTINE 21MG/24HR 1 EA TRANSDERMAL TD PRN (12:32)
[2021-08-26 16:08] LABS: ANTI CENTROMERE ANTIBODY <0.2 AI (0.0-0.9); ANTI-MITOCHONDRIAL ANTIBODY <20.0 Units (0.0-20.0); ANTI-SMOOTH MUSCLE ANTIBODY 6 Units (0-19); Chitobioside Carbohydrat (ACCA 31 units (0-90); Laminaribioside Carbohyd (ALCA 12 units (0-60); Mannobioside Carbohydrat (AMCA 69 units (0-100); Saccharomyces cerevisiae IgG A 60 units (0-50)
[2021-08-26] MEDS ORDERED: LORazepam 2 MG TAB PO STA (17:15)
[2021-08-26] MEDS ORDERED: diphenhydrAMINE 50MG CAP PO STA (17:15)
[2021-08-26] MEDS ORDERED: risperiDONE 1 MG TAB PO STA (17:15)
[2021-08-26 18:30] VITALS: BP 138/74
[2021-08-26 18:31] VITALS: BP 138/86
[2021-08-26] MEDS: QUEtiapine FUMARATE 50MG TAB PO SCH (21:42)
[2021-08-26] MEDS: PALIPERIDONE 6 MG ER TAB (INVEGA) PO SCH (21:42)
[2021-08-26] MEDS: traZODone 50 MG TAB PO PRN (22:24)
[2021-08-27 06:37] VITALS: BP 112/57
[2021-08-27] MEDS: MULTIVITAMINS/MINERALS THERAP 1 TAB PO SCH (09:03)
[2021-08-27] MEDS: FOLIC ACID 1 MG TAB PO SCH (09:03)
[2021-08-27] MEDS: LITHIUM CARBONATE 300 MG CAP PO SCH ×3 (09:03→20:14)
[2021-08-27] MEDS: NICOTINE 21MG/24HR 1 EA TRANSDERMAL TD PRN (14:07)
[2021-08-27 16:37] VITALS: BP 139/85
[2021-08-27] MEDS: PALIPERIDONE 6 MG ER TAB (INVEGA) PO SCH (20:13)
[2021-08-27] MEDS ORDERED: QUEtiapine FUMARATE 100 MG TAB PO SCH (21:00)
[2021-08-28] MEDS: chlorproMAZINE 25 MG TABLET PO PRN (00:48)
[2021-08-28] MEDS: traZODone 50 MG TAB PO PRN ×2 (00:48→21:07)
[2021-08-28] MEDS: diazePAM 2 MG TAB PO PRN ×2 (06:16→21:40)
[2021-08-28 06:37] VITALS: BP 106/57
[2021-08-28] MEDS: MULTIVITAMINS/MINERALS THERAP 1 TAB PO SCH (08:30)
[2021-08-28] MEDS: FOLIC ACID 1 MG TAB PO SCH (08:30)
[2021-08-28] MEDS: LITHIUM CARBONATE 300 MG CAP PO SCH ×3 (08:30→21:07)
[2021-08-28] MEDS: NICOTINE 21MG/24HR 1 EA TRANSDERMAL TD PRN (08:31)
[2021-08-28 17:51] VITALS: BP 156/92
[2021-08-28] MEDS: QUEtiapine FUMARATE 50MG TAB PO SCH (21:07)
[2021-08-28] MEDS: PALIPERIDONE 6 MG ER TAB (INVEGA) PO SCH (21:07)
[2021-08-29 06:22] VITALS: BP 130/78
[2021-08-29] MEDS: BENZTROPINE 1 MG TAB PO PRN (07:37)
[2021-08-29] MEDS: FOLIC ACID 1 MG TAB PO SCH (09:28)
[2021-08-29] MEDS: LITHIUM CARBONATE 300 MG CAP PO SCH (09:28)
[2021-08-29] MEDS: MULTIVITAMINS/MINERALS THERAP 1 TAB PO SCH (09:28)
[2021-08-29 17:45] VITALS: BP 121/69
[2021-08-29] MEDS: QUEtiapine FUMARATE 50MG TAB PO SCH (19:58)
[2021-08-29] MEDS: PALIPERIDONE 6 MG ER TAB (INVEGA) PO SCH (19:58)
[2021-08-29] MEDS: BENZTROPINE 1 MG TAB PO SCH (19:58)
[2021-08-29] MEDS: NICOTINE 21MG/24HR 1 EA TRANSDERMAL TD PRN (20:30)
[2021-08-30 06:33] VITALS: BP 139/84
[2021-08-30] MEDS: BENZTROPINE 1 MG TAB PO SCH ×2 (09:59→21:10)
[2021-08-30] MEDS: MULTIVITAMINS/MINERALS THERAP 1 TAB PO SCH (09:59)
[2021-08-30] MEDS: FOLIC ACID 1 MG TAB PO SCH (09:59)
[2021-08-30] MEDS: diazePAM 2 MG TAB PO PRN (12:44)
[2021-08-30 17:04] VITALS: BP 138/66
[2021-08-30] MEDS: PALIPERIDONE 6 MG ER TAB (INVEGA) PO SCH (21:11)
[2021-08-30] MEDS: QUEtiapine FUMARATE 50MG TAB PO SCH (21:11)
[2021-08-31 06:00] VITALS: BP 122/58
[2021-08-31] MEDS ORDERED: IBUPROFEN 800 MG TAB PO ONE (06:05)
[2021-08-31] MEDS: FOLIC ACID 1 MG TAB PO SCH (08:31)
[2021-08-31] MEDS: LITHIUM CARBONATE 300 MG CAP PO SCH ×2 (08:31→20:24)
[2021-08-31] MEDS: BENZTROPINE 1 MG TAB PO SCH ×2 (08:31→20:24)
[2021-08-31] MEDS: MULTIVITAMINS/MINERALS THERAP 1 TAB PO SCH (08:31)
[2021-08-31] MEDS: diazePAM 2 MG TAB PO PRN (14:42)
[2021-08-31 17:59] VITALS: BP 139/77
[2021-08-31] MEDS: PALIPERIDONE 6 MG ER TAB (INVEGA) PO SCH (20:24)
[2021-08-31] MEDS: QUEtiapine FUMARATE 50MG TAB PO SCH (20:24)
[2021-08-31 21:14] VITALS: BP 136/81
[2021-08-31] MEDS: traZODone 50 MG TAB PO PRN (23:53)
[2021-09-01] MEDS: diazePAM 2 MG TAB PO PRN ×3 (00:12→23:48)
[2021-09-01 06:58] VITALS: BP 147/68
[2021-09-01] MEDS: MULTIVITAMINS/MINERALS THERAP 1 TAB PO SCH (08:40)
[2021-09-01] MEDS: LITHIUM CARBONATE 300 MG CAP PO SCH ×2 (08:40→20:12)
[2021-09-01] MEDS: BENZTROPINE 1 MG TAB PO SCH ×2 (08:40→20:12)
[2021-09-01] MEDS: FOLIC ACID 1 MG TAB PO SCH (08:40)
[2021-09-01] MEDS: NICOTINE 21MG/24HR 1 EA TRANSDERMAL TD PRN (09:26)
[2021-09-01] MEDS: ACETAMINOPHEN TAB 650MG DOSE (2X325MG) PO PRN (12:04)
[2021-09-01] MEDS: chlorproMAZINE 25 MG TABLET PO PRN (17:43)
[2021-09-01] MEDS: PALIPERIDONE 6 MG ER TAB (INVEGA) PO SCH (20:12)
[2021-09-01] MEDS: QUEtiapine FUMARATE 50MG TAB PO SCH (20:12)
[2021-09-01] MEDS: traZODone 50 MG TAB PO PRN (22:51)
[2021-09-02] MEDS: ACETAMINOPHEN TAB 650MG DOSE (2X325MG) PO PRN (02:48)
[2021-09-02 06:33] VITALS: BP 105/72
[2021-09-02] MEDS: MULTIVITAMINS/MINERALS THERAP 1 TAB PO SCH (08:52)
[2021-09-02] MEDS: LITHIUM CARBONATE 300 MG CAP PO SCH ×2 (08:52→20:14)
[2021-09-02] MEDS: BENZTROPINE 1 MG TAB PO SCH ×2 (08:52→20:14)
[2021-09-02] MEDS: FOLIC ACID 1 MG TAB PO SCH (08:52)
[2021-09-02 16:25] VITALS: BP 133/72
[2021-09-02] MEDS: QUEtiapine FUMARATE 200 MG TAB PO SCH (20:14)
[2021-09-02] MEDS: PALIPERIDONE 6 MG ER TAB (INVEGA) PO SCH (20:14)
[2021-09-03 06:08] VITALS: BP 96/57
[2021-09-03] MEDS: BENZTROPINE 1 MG TAB PO SCH ×2 (08:32→21:09)
[2021-09-03] MEDS: LITHIUM CARBONATE 300 MG CAP PO SCH ×2 (08:32→21:09)
[2021-09-03] MEDS: FOLIC ACID 1 MG TAB PO SCH (08:32)
[2021-09-03] MEDS: MULTIVITAMINS/MINERALS THERAP 1 TAB PO SCH (08:32)
[2021-09-03] MEDS: NICOTINE 21MG/24HR 1 EA TRANSDERMAL TD PRN (08:33)
[2021-09-03] MEDS: ACETAMINOPHEN TAB 650MG DOSE (2X325MG) PO PRN (15:29)
[2021-09-03 16:06] VITALS: BP 134/85
[2021-09-03] MEDS: QUEtiapine FUMARATE 200 MG TAB PO SCH ×2 (21:00→22:30)
[2021-09-03] MEDS: PALIPERIDONE 6 MG ER TAB (INVEGA) PO SCH (21:09)
[2021-09-04 06:15] VITALS: BP 111/66
[2021-09-04] MEDS: FOLIC ACID 1 MG TAB PO SCH (07:51)
[2021-09-04] MEDS: MULTIVITAMINS/MINERALS THERAP 1 TAB PO SCH (07:51)
[2021-09-04] MEDS: LITHIUM CARBONATE 300 MG CAP PO SCH ×3 (07:51→20:49)
[2021-09-04] MEDS: BENZTROPINE 1 MG TAB PO SCH ×2 (07:51→20:49)
[2021-09-04] MEDS: NICOTINE 21MG/24HR 1 EA TRANSDERMAL TD PRN (13:22)
[2021-09-04] MEDS: PALIPERIDONE 3 MG ER TAB (INVEGA) PO SCH (13:22)
[2021-09-04 16:07] VITALS: BP 125/81
[2021-09-04] MEDS: ACETAMINOPHEN TAB 650MG DOSE (2X325MG) PO PRN (19:31)
[2021-09-04] MEDS: PALIPERIDONE 6 MG ER TAB (INVEGA) PO SCH (20:49)
[2021-09-04] MEDS: QUEtiapine FUMARATE 200 MG TAB PO SCH (20:49)
[2021-09-05 06:51] VITALS: BP 122/79
[2021-09-05] MEDS: BENZTROPINE 1 MG TAB PO SCH ×2 (08:24→21:15)
[2021-09-05] MEDS: MULTIVITAMINS/MINERALS THERAP 1 TAB PO SCH (08:24)
[2021-09-05] MEDS: chlorproMAZINE 25 MG TABLET PO PRN (08:24)
[2021-09-05] MEDS: FOLIC ACID 1 MG TAB PO SCH (08:24)
[2021-09-05] MEDS: PALIPERIDONE 3 MG ER TAB (INVEGA) PO SCH (08:24)
[2021-09-05] MEDS: LITHIUM CARBONATE 300 MG CAP PO SCH ×3 (08:24→21:00)
[2021-09-05] MEDS: NICOTINE 21MG/24HR 1 EA TRANSDERMAL TD PRN (08:25)
[2021-09-05] MEDS ORDERED: TUBERCULIN PPD 5 UNITS/0.1 ML ID ONE ×2 (14:35→15:00)
[2021-09-05 18:04] VITALS: BP 130/80
[2021-09-05] MEDS: QUEtiapine FUMARATE 200 MG TAB PO SCH (21:15)
[2021-09-05] MEDS: PALIPERIDONE 6 MG ER TAB (INVEGA) PO SCH (21:15)
[2021-09-06 06:42] VITALS: BP 112/59
[2021-09-06] MEDS: LITHIUM CARBONATE 300 MG CAP PO SCH (08:35)
[2021-09-06] MEDS: PALIPERIDONE 3 MG ER TAB (INVEGA) PO SCH ×2 (08:35→20:35)
[2021-09-06] MEDS: FOLIC ACID 1 MG TAB PO SCH (08:35)
[2021-09-06] MEDS: BENZTROPINE 1 MG TAB PO SCH ×2 (08:35→20:35)
[2021-09-06] MEDS: MULTIVITAMINS/MINERALS THERAP 1 TAB PO SCH (08:35)
[2021-09-06] MEDS ORDERED: PALIPERIDONE PALMITATE 234MG/1.5ML INJ (INVEGA)(FREE PSY INPT ONLY) IM ONE (09:00)
[2021-09-06] MEDS: DIMETHICONE 2% OINTMENT(VANICREAM) 70GM TUBE TOP SCH (11:09)
[2021-09-06] MEDS: NICOTINE 21MG/24HR 1 EA TRANSDERMAL TD PRN (11:23)
[2021-09-06 16:46] VITALS: BP 120/78
[2021-09-06] MEDS: QUEtiapine FUMARATE 200 MG TAB PO SCH (20:35)
[2021-09-06] MEDS: LITHIUM CARBONATE 600MG CAP PO SCH (20:35)
[2021-09-07 06:40] VITALS: BP 131/61
[2021-09-07] MEDS: BENZTROPINE 1 MG TAB PO SCH ×2 (08:21→20:37)
[2021-09-07] MEDS: DIMETHICONE 2% OINTMENT(VANICREAM) 70GM TUBE TOP SCH (08:21)
[2021-09-07] MEDS: LITHIUM CARBONATE 600MG CAP PO SCH ×2 (08:21→20:37)
[2021-09-07] MEDS: PALIPERIDONE 3 MG ER TAB (INVEGA) PO SCH ×2 (08:21→20:37)
[2021-09-07] MEDS: FOLIC ACID 1 MG TAB PO SCH (08:21)
[2021-09-07] MEDS: MULTIVITAMINS/MINERALS THERAP 1 TAB PO SCH (08:21)
[2021-09-07] MEDS ORDERED: PPD DOCUMENTATION ENTRY MISC XX SCH (10:00)
[2021-09-07] MEDS: NICOTINE 21MG/24HR 1 EA TRANSDERMAL TD PRN (14:07)
[2021-09-07] MEDS ORDERED: PPD DOCUMENTATION ENTRY MISC XX ONE (15:00)
[2021-09-07] MEDS ORDERED: TUBERCULIN PPD 5 UNITS/0.1 ML ID ONE (15:30)
[2021-09-07 16:39] VITALS: BP 114/74
[2021-09-07] MEDS: QUEtiapine FUMARATE 200 MG TAB PO SCH (20:37)
[2021-09-08 06:20] VITALS: BP 106/53
[2021-09-08] MEDS: BENZTROPINE 1 MG TAB PO SCH ×2 (08:57→21:02)
[2021-09-08] MEDS: PALIPERIDONE 3 MG ER TAB (INVEGA) PO SCH ×2 (08:57→21:02)
[2021-09-08] MEDS: MULTIVITAMINS/MINERALS THERAP 1 TAB PO SCH (08:57)
[2021-09-08] MEDS: LITHIUM CARBONATE 600MG CAP PO SCH ×2 (08:57→21:02)
[2021-09-08] MEDS: DIMETHICONE 2% OINTMENT(VANICREAM) 70GM TUBE TOP SCH (08:57)
[2021-09-08] MEDS: FOLIC ACID 1 MG TAB PO SCH (08:57)
[2021-09-08] MEDS: NICOTINE 21MG/24HR 1 EA TRANSDERMAL TD PRN (16:05)
[2021-09-08 17:59] VITALS: BP 129/69
[2021-09-08] MEDS: QUEtiapine FUMARATE 200 MG TAB PO SCH (21:02)
[2021-09-09 06:44] VITALS: BP 134/80
[2021-09-09] MEDS: DIMETHICONE 2% OINTMENT(VANICREAM) 70GM TUBE TOP SCH (09:00)
[2021-09-09] MEDS: FOLIC ACID 1 MG TAB PO SCH (09:33)
[2021-09-09] MEDS: MULTIVITAMINS/MINERALS THERAP 1 TAB PO SCH (09:33)
[2021-09-09] MEDS: BENZTROPINE 1 MG TAB PO SCH ×2 (09:34→20:42)
[2021-09-09] MEDS: LITHIUM CARBONATE 600MG CAP PO SCH ×2 (09:34→20:41)
[2021-09-09] MEDS: PALIPERIDONE 3 MG ER TAB (INVEGA) PO SCH (09:34)
[2021-09-09] MEDS ORDERED: PPD DOCUMENTATION ENTRY MISC XX ONE (15:00)
[2021-09-09] MEDS: NICOTINE 21MG/24HR 1 EA TRANSDERMAL TD PRN (17:52)
[2021-09-09 18:00] VITALS: BP 138/88
[2021-09-09] MEDS: QUEtiapine FUMARATE 200 MG TAB PO SCH (20:42)
[2021-09-10 06:48] VITALS: BP 157/75
[2021-09-10] MEDS ORDERED: PALIPERIDONE PALMITATE 156MG/1ML INJ(INVEGA)(FREE PSY INPT ONLY) IM ONE (08:00)
[2021-09-10] MEDS: BENZTROPINE 1 MG TAB PO SCH (08:53)
[2021-09-10] MEDS: FOLIC ACID 1 MG TAB PO SCH (08:53)
[2021-09-10] MEDS: MULTIVITAMINS/MINERALS THERAP 1 TAB PO SCH (08:53)
[2021-09-10] MEDS: LITHIUM CARBONATE 600MG CAP PO SCH (08:53)
[2021-09-10] MEDS ORDERED: PALIPERIDONE 3 MG ER TAB (INVEGA) PO SCH (09:00)
[2021-09-10] MEDS: DIMETHICONE 2% OINTMENT(VANICREAM) 70GM TUBE TOP SCH (09:00)
[2021-09-10] MEDS ORDERED: QUET200T2 PO (09:32)
[2021-09-10] MEDS ORDERED: NICO21PAT TD (09:32)
[2021-09-10] MEDS ORDERED: VITMTA PO (09:32)
[2021-09-10] MEDS ORDERED: LITH600C PO (09:32)
[2021-09-10] MEDS ORDERED: BENZ-52 PO (09:32)
[2021-09-10] MEDS ORDERED: INVE234I IM (09:41)
[2021-09-13] MEDS ORDERED: PALIPERIDONE PALMITATE 156MG/1ML INJ(INVEGA)(FREE PSY INPT ONLY) IM ONE (06:00)
== END 2021-09-10 11:51 | disposition home or self-care (01) | DRG 753 ==
LOC: M ED 15:27 → M ED INP 22:16 → M PSY 22:35 → M ED INP 22:35 → M PSY 08-20 01:56
PROVIDERS: ADMIT Student in an Organized Health Care Education/Training Program; ATTEND Student in an Organized Health Care Education/Training Program
DX: F31.64 Bipolar disorder, current episode mixed, severe, with psychotic features (principal); K76.0 Fatty (change of) liver, not elsewhere classified; F17.210 Nicotine dependence, cigarettes, uncomplicated; F12.10 Cannabis abuse, uncomplicated; R74.01 Elevation of levels of liver transaminase levels; F10.20 Alcohol dependence, uncomplicated; Z81.8 Family history of other mental and behavioral disorders; Z20.822 Contact with and (suspected) exposure to COVID-19; Z79.899 Other long term (current) drug therapy

== ENCOUNTER → 2021-09-11 | Outpatient (CLI) | payer MEDICAID ==
[~2021-09-11] MED LIST changes: +BENZ-52 PO; +BUSP-29 PO; +INVE234I IM; +LITH600C PO; +MIRT-62 PO; +NICO21PAT TD; +QUET200T2 PO; +VITMTA PO
== END ==
LOC: M WUC 09:59
PROVIDERS: ATTEND Student in an Organized Health Care Education/Training Program
DX: Z79.899 Other long term (current) drug therapy (principal); F29 Unspecified psychosis not due to a substance or known physiological condition

== ENCOUNTER 2023-04-09 14:05 | Emergency (ER) | payer MEDICAID, OTHER ==
[~2023-04-09] VITALS: Ht 182.9 cm; Wt 83.3 kg
[~2023-04-09 14:05] MED LIST changes: -BENZ-52 PO; +BENZ1TAB5 PO; -BUSP-29 PO; +BUSP10TA79 PO
[2023-04-09 14:06] VITALS: BP 146/75; TEMP 98.7; O2SAT 100
== END 2023-04-09 15:33 | disposition left against medical advice (07) ==
LOC: M ED 14:05
DX: Z53.21 Procedure and treatment not carried out due to patient leaving prior to being seen by health care provider (principal)